=== PATIENT | male | born 1950 | race Caucasian/White ===

== ENCOUNTER 2022-12-25 10:01 | Outpatient (CLI) | payer MEDICARE | END 2022-12-25 10:02 | disposition home or self-care (01) | LOC: SCSMRI 10:01 | PROVIDERS: ATTEND Internal Medicine | DX: G45.9 Transient cerebral ischemic attack, unspecified (principal); I67.89 Other cerebrovascular disease; G93.9 Disorder of brain, unspecified | CPT/HCPCS: 70551 ==

== ENCOUNTER 2023-12-20 14:02 | Outpatient (CLI) | payer MEDICARE | END 2023-12-20 14:03 | disposition home or self-care (01) | LOC: BICRAD 14:02 | PROVIDERS: ATTEND Internal Medicine | DX: R76.12 Nonspecific reaction to cell mediated immunity measurement of gamma interferon antigen response without active tuberculosis (principal) | CPT/HCPCS: 71046 ==